=== PATIENT | male | born 1990 | race Caucasian/White ===

== ENCOUNTER → 2018-07-06 | Outpatient (CLI) | payer OTHER ==
--- NOTE | 2018-07-09 10:14 | SLEEPCENT ---
DATE OF PROCEDURE: 07/06/2018 ORDERED BY: ARIS Jimenez Nocturnal polysomnography was performed for evaluation of sleep physiology in this patient with a history of excessive somnolence, morning headaches, and nonrestorative sleep who has comorbidities of posttraumatic stress disorder (PTSD) and hypertension. 8 hours and 4 minutes of data were reviewed. There were 373 minutes of sleep identified. Sleep latency was mildly prolonged at 22 minutes. Rapid eye movement (REM) latency more so prolonged at 359 minutes. Sleep architecture showed fragmentation and poor sleep progression. There was only one brief REM cycle noted. Overall sleep efficiency was fairly good at 77.9%. The patient's electrocardiogram showed sinus rhythm with an average heart rate of 76 beats per minute. Electroencephalogram (EEG) showed fairly normal waveforms for awake and sleep. There were no focal events identified. There were 73 respiratory events identified of 10 seconds in duration or greater for an apnea-hypopnea index of 11.7. The events were primarily obstructive not exclusive to sleep stage nor body posture. Arousals from respiratory events occurred 6.6 times per hour and oxygen desaturations were seen into the upper 80s. There was some activity in the limb leads with 2 trains of 30 events. Limb movement arousal index 6.30. IMPRESSION: Obstructive sleep apnea syndrome (G47.33). Apnea-hypopnea index 11.7. RECOMMENDATIONS: The patient should be encouraged to return to sleep disorder center for pressure therapy. In the interim, alcohol and sedative avoidance should be practiced and caution exercised during the operation of motor vehicles.
== END ==
LOC: M SLEEP 19:37
PROVIDERS: ATTEND Nurse Practitioner Family
DX: G47.33 Obstructive sleep apnea (adult) (pediatric) (principal)

== ENCOUNTER → 2018-08-09 | Outpatient (CLI) | payer OTHER ==
--- NOTE | 2018-08-12 21:40 | SLEEPCENT ---
DATE OF PROCEDURE: 08/09/2018 Ordered by: SELINA Jimenez Nocturnal polysomnography was performed for the titration of pressure therapy in this patient with obstructive sleep apnea syndrome. Apnea-hypopnea index 11.7. For testing a ResMed Mirage FX nasal mask of standard size was used, 4 cm of water pressure applied to the circuit and the lights were extinguished. 8 hours and 6 minutes of data were reviewed. There were 394 minutes of sleep identified. Sleep latency occurred at time of the lights out and was therefore quite short. REM latency was mildly delayed at 159 minutes. Sleep architecture was good. There were six REM cycles noted. Overall sleep efficiency 81.7%. The electrocardiogram showed a sinus rhythm with an average heart rate of 60 beats per minute. EEG showed reasonably normal waveforms for awake and sleep. Respiratory events were best palliated with C-PAP at a pressure of +7 and remaining measures of sleep physiology were normal. IMPRESSION Obstructive sleep apnea syndrome (G47.33) RECOMMENDATIONS Nightly use of pressure therapy 7 cm of water.
== END ==
LOC: M SLEEP 19:44
PROVIDERS: ATTEND Nurse Practitioner Family
DX: G47.33 Obstructive sleep apnea (adult) (pediatric) (principal)